=== PATIENT | female | born 1945 | race Caucasian/White ===

== ENCOUNTER 2017-09-06 01:29 | Emergency (ER) | payer OTHER, BC ==
[~2017-09-06] VITALS: Ht 154.9 cm; Wt 52.4 kg
[~2017-09-06 01:29] MED LIST: ASMANEX TW200 MICRO1 IH; CALCIUM 600 +1 EAC4 PO; CYMBALTA60 MG PO; IRON18 MG PO; LIPITOR80 MG PO; LISINOPRIL20 MG PO; LO-DOSE ASPIRIN81 M1 PO; METOPROLOL TART50 MG PO; MULTAQ400 MG PO; NASALCROM NASAL13 ML BOTH NARES; NITROSTAT0.4 MG SL; OCUVITE TABLET1 EACH PO; OMEPRAZOLE20 MG PO; POTASSIUM CHLO20 ME1 PO; PREDNISONE5 MG PO; PROVENTIL HFA6.7 GM IH; PYRIDOSTIGMINE60 MG PO; REFRESH EYE DR1 EACH BOTH EYES; ROXICODONE5 MG PO; SALINE NASAL SP45 ML BOTH NARES; TRAMADOL HCL50 MG PO; VITAMIN B-121000 MC1 SL; VITAMIN D31000 UNI2 PO; XARELTO15 MG PO; ZESTORETIC 20-1 EAC1 PO
[2017-09-06 01:59] LABS: HEMATOCRIT 32.3 % (36.0-46.0); HEMOGLOBIN 10.5 G/DL (11.9-15.5); MCH 30.4 PG (29.0-34.0); MCHC 32.5 G/DL (30.0-36.0); MCV 93.6 FL (83-99); PLATELET COUNT 346 K/uL (156-360); RBC DIS.WIDTH-CV 17.3 % (11.8-14.6); RBC DIS.WIDTH-SD 59.5 % (39-53); RED BLOOD COUNT 3.45 M/uL (3.80-5.20); WHITE BLOOD COUNT 8.4 K/uL (4.1-10.2)
[2017-09-06 02:09] LABS: CHLORIDE 106 mEq/L (99-109); POTASSIUM 4.1 mEq/L (3.7-5.4); SODIUM 140 mEq/L (136-147)
[2017-09-06 02:10] LABS: GLUCOSE 105 mg/dL (70-99)
[2017-09-06 02:14] LABS: CREATININE 0.9 mg/dL (0.6-1.3); GFR ESTIMATE (CALCULATED) > 59 mL/min/
[2017-09-06 02:15] LABS: UREA NITROGEN (BUN) 10 mg/dL (9-23)
[2017-09-06 02:23] LABS: TROP-I INTERPRETATION NEGATIVE; TROPONIN-I < 0.01 ng/mL (0.0-0.30)
[2017-09-06 03:14] LABS: LIPASE 28 U/L (1.0-51.0)
[2017-09-06] MEDS ORDERED: XYLOCAINE VISC100 ML PO (04:01)
[2017-09-06 04:28] VITALS: BP 163/106
== END 2017-09-06 04:20 | disposition home or self-care (01) ==
LOC: EME 01:29
DX: R07.89 Other chest pain (principal); R10.9 Unspecified abdominal pain; C34.90 Malignant neoplasm of unspecified part of unspecified bronchus or lung; I10 Essential (primary) hypertension; E11.9 Type 2 diabetes mellitus without complications; K21.9 Gastro-esophageal reflux disease without esophagitis; G70.00 Myasthenia gravis without (acute) exacerbation; Z86.73 Personal history of transient ischemic attack (TIA), and cerebral infarction without residual deficits; Z79.01 Long term (current) use of anticoagulants; Z79.82 Long term (current) use of aspirin; Z88.2 Allergy status to sulfonamides; Z91.040 Latex allergy status
CPT/HCPCS: 71046; 74019; 80048; 83690; 84484; 85027; 93005; 99281; 99284